=== PATIENT | male | born 1970 | race Caucasian/White ===

== ENCOUNTER 2021-08-17 07:39 | Outpatient (CLI) | payer BC | END 2021-08-17 07:40 | disposition home or self-care (01) | LOC: CT 07:39 | PROVIDERS: ATTEND Physician Assistant Medical | DX: Z12.11 Encounter for screening for malignant neoplasm of colon (principal); R10.9 Unspecified abdominal pain; R30.0 Dysuria; K64.4 Residual hemorrhoidal skin tags; Q43.3 Congenital malformations of intestinal fixation | CPT/HCPCS: 74177 ==